=== PATIENT | male | born 1940 | race Asian ===

== ENCOUNTER 2018-07-12 15:33 | Inpatient (IN) | payer OTHER, BC ==
[~2018-07-12] VITALS: Ht 165.1 cm; Wt 89.8 kg
[2018-07-12] MEDS ORDERED: NACL 0.9% 1,000 ML IV ONE (15:45)
[2018-07-12] MEDS ORDERED: IPRATROPIUM/ALBUTEROL SULFATE 3 ML AMPUL.NEB (DUONEB) INH ONE (15:45)
[2018-07-12 15:55] VITALS: BP_SYST 158
[2018-07-12 17:06] LABS: ANION GAP 11 (5-15); CALCIUM 8.1 mg/dL (8.4-11.0); CHLORIDE 99 mmol/L (98-107); CREATININE 1.26 mg/dL (0.55-1.30); GLUCOSE 110 mg/dL (70-99); POTASSIUM 3.7 mmol/L (3.5-5.1); SODIUM SERUM 131 mmol/L (136-145); UREA NITROGEN, BLOOD 17 mg/dL (8-21)
[2018-07-12 17:11] LABS: ALANINE AMINOTRANSFERASE 23 U/L (12-78); ALBUMIN 3.1 g/dL (3.4-4.8); ASPARTATE AMINOTRANSFERASE 38 U/L (10-37); TOTAL BILIRUBIN 1.8 mg/dL (0.0-1.0)
[2018-07-12 17:25] LABS: BILIRUBIN,URINE 1+ (NEGATIVE); BLOOD, URINE 1+ (NEGATIVE); CLARITY/URINE CLEAR (CLEAR); COLOR,URINE YELLOW (YELLOW); GLUCOSE,URINE NEGATIVE (NEGATIVE); KETONES,URINE 2+ (NEGATIVE); LEUKOCYTE ESTERASE ,URINE 1+ (NEGATIVE); NITRITE, URINE NEGATIVE (NEGATIVE); PROTEIN URINE NEGATIVE (NEGATIVE)
[2018-07-12 17:27] LABS: ALCOHOL, BLOOD < 3 mg/dL (<10)
[2018-07-12 17:45] LABS: BACTERIA,URINE FEW /HPF (None Seen); MUCUS,URINE 1+ /LPF (None Seen)
[2018-07-12] MEDS ORDERED: VANCOMYCIN HCL 1,000 MG in NS 250 ML IV ONE (17:45)
[2018-07-12 17:46] LABS: BARBITURATE, URINE NEGATIVE (NEG <=200); BENZODIAZEPINE, URINE NEGATIVE (NEG <=150); CANNABINOID, URINE NEGATIVE (NEG <=50); COCAINE, URINE NEGATIVE (NEG <=150); METHAMPHETAMINES SCREEN,URINE NEGATIVE (NEG <=500); OPIATE, URINE NEGATIVE (NEG <=100); PHENCYCLIDINE SCREEN,URINE NEGATIVE (NEG <=25); UR TRICYCLIC ANTIDEPRESSANTS NEGATIVE (NEG <=300); URINE AMPHETAMINE NEGATIVE (NEG <=500); URINE METHADONE NEGATIVE (NEG <=200); URINE OXYCODONE SCREEN NEGATIVE (NEG <=100); URINE PROPOXYPHENE SCREEN NEGATIVE (NEG <=300)
[2018-07-12] MEDS ORDERED: VANCOMYCIN HCL 1000 MG/VIAL IV ONE (17:58)
[2018-07-12 18:04] LABS: HEMATOCRIT 39.5 % (36-54); MEAN CORPUSCULAR HEMOGLOBIN 33 pg (27-31); MEAN CORPUSCULAR HGB CONC 34 % (32-36); MEAN CORPUSCULAR VOLUME 97 fL (79.0-98.0); PLATELET COUNT (AUTO) 235 K/uL (130-430); RED BLOOD CELL COUNT(AUTO) 4.07 MIL/uL (4.2-6.2); RED CELL DISTRIBUTION WIDTH 14.7 % (9.0-15.0); WHITE BLOOD COUNT (AUTO) 12.2 K/uL (4.8-10.8)
[2018-07-12 18:05] LABS: BASOPHILS # (AUTO) 0.1 K/uL (0.0-0.2); BASOPHILS % (AUTO) 0.8 % (0.0-2.0); EOSINOPHILS # (AUTO) 0.2 K/uL (0.0-0.4); EOSINOPHILS % (AUTO) 1.9 % (0.0-4.0); LYMPHOCYTES # (AUTO) 1.5 K/uL (1.0-5.5); LYMPHOCYTES % (AUTO) 12.4 % (20.5-51.5); MONOCYTES % (AUTO) 16.6 % (1.7-9.3); NEUTROPHILS # (AUTO) 8.4 K/uL (1.8-7.7); NEUTROPHILS % (AUTO) 68.3 % (40.0-70.0)
[2018-07-12 18:08] LABS: HEMOGLOBIN 13.6 g/dL (14.0-18.0)
[2018-07-12 19:03] VITALS: BP_SYST 147
[2018-07-12 19:25] LABS: INR 1.2 (0.80-1.20); PROTHROMBIN TIME 11.8 SECS (9.5-12.5)
[2018-07-12] MEDS ORDERED: POTASSIUM CHLORIDE 20 MEQ TAB.PRT.SR PO PRN (19:30)
[2018-07-12] MEDS ORDERED: LORazepam 2 MG/ML VIAL IVP PRN (19:30)
[2018-07-12] MEDS ORDERED: MAGNESIUM SULFATE 50 ML IV PRN (19:30)
[2018-07-12] MEDS ORDERED: ACETAMINOPHEN 325 MG TABLET PO PRN (19:30)
[2018-07-12] MEDS ORDERED: MORPHINE 4 MG/ML INJ. SYRINGE IVP PRN ×2 (19:30)
[2018-07-12] MEDS ORDERED: DOCUSATE SODIUM 100 MG CAPSULE PO PRN (19:30)
[2018-07-12] MEDS ORDERED: METOPROLOL TARTRATE 25 MG TABLET PO ONE (19:30)
[2018-07-12] MEDS ORDERED: ZOLPIDEM TARTRATE 5 MG TABLET PO PRN (19:30)
[2018-07-12] MEDS ORDERED: MUPIROCIN 2% TOPICAL OINTMENT 22 GM NS PRN (19:30)
[2018-07-12] MEDS ORDERED: ONDANSETRON HCL 4 MG/2 ML VIAL IVP PRN (19:30)
[2018-07-12 20:00] VITALS: BP_SYST 147
[2018-07-12] MEDS ORDERED: ACETAMINOPHEN 500 MG TABLET PO PRN (20:45)
[2018-07-12] MEDS: HEPARIN SODIUM,PORCINE 5000 UNITS/ML VIAL SUBCUT SCH (20:53)
[2018-07-12] MEDS: cefTRIAXone 1 GM in D5W 50 ML IV SCH (20:56)
[2018-07-12] MEDS ORDERED: cefTRIAXone 1 GM IVPB PREMIX 50 ML IV ONE (21:02)
[2018-07-12] MEDS ORDERED: POTA20TA83 PO (21:39)
[2018-07-12] MEDS ORDERED: ALBU8.5H8 INH (21:39)
[2018-07-12] MEDS ORDERED: FLUT1DIS5 IH (21:39)
[2018-07-12] MEDS ORDERED: DILT120C89 PO (21:39)
[2018-07-12] MEDS ORDERED: XALEYE OP (21:39)
[2018-07-12] MEDS ORDERED: BRI.2% OP (21:39)
[2018-07-12] MEDS ORDERED: FINA5TAB3 PO (21:39)
[2018-07-12] MEDS ORDERED: PRO40 PO (21:39)
[2018-07-12] MEDS ORDERED: ALBU2.5V7 INH (21:39)
[2018-07-12] MEDS ORDERED: [UNRECOGNIZED DRUG - OTHER] OP (21:39)
[2018-07-12 21:45] VITALS: BP_SYST 142
[2018-07-12] MEDS: D5NS 1,000 ML IV SCH (21:55)
[2018-07-12] MEDS: IPRATROPIUM/ALBUTEROL SULFATE 3 ML AMPUL.NEB (DUONEB) INH PRN (22:30)
[2018-07-12 22:32] VITALS: BP_SYST 147
[2018-07-12 23:33] VITALS: BP_SYST 135
[2018-07-13 07:09] LABS: ANION GAP 7 (5-15); CALCIUM 7.4 mg/dL (8.4-11.0); CHLORIDE 101 mmol/L (98-107); CREATININE 0.92 mg/dL (0.55-1.30); GLUCOSE 111 mg/dL (70-99); POTASSIUM 3.5 mmol/L (3.5-5.1); SODIUM SERUM 130 mmol/L (136-145); UREA NITROGEN, BLOOD 16 mg/dL (8-21)
[2018-07-13] MEDS: IPRATROPIUM/ALBUTEROL SULFATE 3 ML AMPUL.NEB (DUONEB) INH PRN (07:19)
[2018-07-13 07:40] VITALS: BP_SYST 168
[2018-07-13] MEDS: HEPARIN SODIUM,PORCINE 5000 UNITS/ML VIAL SUBCUT SCH ×2 (08:47→21:15)
[2018-07-13] MEDS ORDERED: METOPROLOL TARTRATE 25 MG TABLET PO SCH (09:00)
[2018-07-13] MEDS: D5NS 1,000 ML IV SCH ×2 (09:00→19:29)
[2018-07-13] MEDS ORDERED: MAGNESIUM SULFATE 50 ML IV ONE (09:15)
[2018-07-13] MEDS ORDERED: FUROSEMIDE 40 MG/4 ML VIAL IVP ONE (09:15)
[2018-07-13 09:31] LABS: HEMATOCRIT 36.2 % (36-54); HEMOGLOBIN 12.6 g/dL (14.0-18.0); MEAN CORPUSCULAR HEMOGLOBIN 35 pg (27-31); MEAN CORPUSCULAR HGB CONC 35 % (32-36); MEAN CORPUSCULAR VOLUME 101 fL (79.0-98.0); NEUTROPHILS % (AUTO) 71.5 % (40.0-70.0); PLATELET COUNT (AUTO) 203 K/uL (130-430); RED BLOOD CELL COUNT(AUTO) 3.58 MIL/uL (4.2-6.2); RED CELL DISTRIBUTION WIDTH 14.9 % (9.0-15.0); WHITE BLOOD COUNT (AUTO) 11.9 K/uL (4.8-10.8)
[2018-07-13 09:32] LABS: BASOPHILS % (AUTO) 0.2 % (0.0-2.0); EOSINOPHILS # (AUTO) 0.2 K/uL (0.0-0.4); EOSINOPHILS % (AUTO) 1.4 % (0.0-4.0); LYMPHOCYTES # (AUTO) 1.1 K/uL (1.0-5.5); LYMPHOCYTES % (AUTO) 9.2 % (20.5-51.5); MONOCYTES # (AUTO) 2.1 K/uL (0.0-1.0); MONOCYTES % (AUTO) 17.7 % (1.7-9.3); NEUTROPHILS # (AUTO) 8.5 K/uL (1.8-7.7)
[2018-07-13] MEDS: IPRATROPIUM/ALBUTEROL SULFATE 3 ML AMPUL.NEB (DUONEB) INH SCH ×3 (11:39→20:05)
[2018-07-13 12:40] VITALS: BP_SYST 109
[2018-07-13] MEDS ORDERED: IOHEXOL 350 mgI/mL, 150 ML INFUS..BTL IV ONE (14:22)
[2018-07-13] MEDS: methylPREDNISolone SOD SUCC/PF 62.5 MG/ML VIAL IVP SCH ×2 (15:14→22:43)
[2018-07-13 16:02] VITALS: BP_SYST 138
[2018-07-13 16:05] VITALS: BP_SYST 142
[2018-07-13] MEDS: MONTELUKAST 10 MG TABLET PO SCH (18:05)
[2018-07-13 20:00] VITALS: BP_SYST 131
[2018-07-13] MEDS: cefTRIAXone 1 GM in D5W 50 ML IV SCH (20:59)
[2018-07-13] MEDS: METOPROLOL TARTRATE 50 MG TABLET PO SCH (21:12)
[2018-07-13 23:12] VITALS: BP_SYST 105
[2018-07-14] MEDS: methylPREDNISolone SOD SUCC/PF 62.5 MG/ML VIAL IVP SCH (06:29)
[2018-07-14 06:46] LABS: ANION GAP 8 (5-15); CALCIUM 7.4 mg/dL (8.4-11.0); CHLORIDE 105 mmol/L (98-107); CREATININE 1.19 mg/dL (0.55-1.30); GLUCOSE 199 mg/dL (70-99); POTASSIUM 3.7 mmol/L (3.5-5.1); SODIUM SERUM 136 mmol/L (136-145); UREA NITROGEN, BLOOD 31 mg/dL (8-21)
[2018-07-14] MEDS: IPRATROPIUM/ALBUTEROL SULFATE 3 ML AMPUL.NEB (DUONEB) INH SCH ×5 (07:16→23:35)
[2018-07-14 07:47] LABS: HEMOGLOBIN 12.4 g/dL (14.0-18.0); RED BLOOD CELL COUNT(AUTO) 3.52 MIL/uL (4.2-6.2); WHITE BLOOD COUNT (AUTO) 10.9 K/uL (4.8-10.8)
[2018-07-14 07:48] LABS: BASOPHILS % (AUTO) 0.1 % (0.0-2.0); HEMATOCRIT 34.7 % (36-54); LYMPHOCYTES % (AUTO) 5.1 % (20.5-51.5); MEAN CORPUSCULAR HEMOGLOBIN 35 pg (27-31); MEAN CORPUSCULAR HGB CONC 26 % (32-36); MEAN CORPUSCULAR VOLUME 99 fL (79.0-98.0); MONOCYTES % (AUTO) 6.2 % (1.7-9.3); NEUTROPHILS % (AUTO) 88.6 % (40.0-70.0); PLATELET COUNT (AUTO) 192 K/uL (130-430); RED CELL DISTRIBUTION WIDTH 14.5 % (9.0-15.0)
[2018-07-14 07:49] LABS: LYMPHOCYTES # (AUTO) 0.6 K/uL (1.0-5.5); MONOCYTES # (AUTO) 0.7 K/uL (0.0-1.0); NEUTROPHILS # (AUTO) 9.7 K/uL (1.8-7.7)
[2018-07-14 08:02] VITALS: BP_SYST 121
[2018-07-14] MEDS: METOPROLOL TARTRATE 50 MG TABLET PO SCH ×2 (08:43→20:48)
[2018-07-14] MEDS: HEPARIN SODIUM,PORCINE 5000 UNITS/ML VIAL SUBCUT SCH ×2 (08:45→20:52)
[2018-07-14] MEDS: D5NS 1,000 ML IV SCH (12:08)
[2018-07-14 12:10] VITALS: BP_SYST 101
[2018-07-14] MEDS: methylPREDNISolone SOD SUCC 40 MG/ML VIAL IVP SCH ×2 (15:12→23:01)
[2018-07-14 16:15] VITALS: BP_SYST 116
[2018-07-14] MEDS: MONTELUKAST 10 MG TABLET PO SCH (18:18)
[2018-07-14 20:00] VITALS: BP_SYST 116
[2018-07-14] MEDS: cefTRIAXone 1 GM in D5W 50 ML IV SCH (20:48)
[2018-07-15 02:14] VITALS: BP_SYST 107
[2018-07-15] MEDS: D5NS 1,000 ML IV SCH ×2 (02:24→17:53)
[2018-07-15] MEDS ORDERED: FUROSEMIDE 40 MG/4 ML VIAL IVP ONE (05:30)
[2018-07-15] MEDS: methylPREDNISolone SOD SUCC 40 MG/ML VIAL IVP SCH (06:00)
[2018-07-15] MEDS ORDERED: FUROSEMIDE 40 MG TABLET PO ONE (07:00)
[2018-07-15] MEDS: IPRATROPIUM/ALBUTEROL SULFATE 3 ML AMPUL.NEB (DUONEB) INH SCH ×5 (07:15→22:00)
[2018-07-15 07:50] VITALS: BP_SYST 103
[2018-07-15 08:10] LABS: PROTHROMBIN TIME 9.8 SECS (9.5-12.5)
[2018-07-15 08:18] LABS: ANION GAP 8 (5-15); CHLORIDE 106 mmol/L (98-107); CREATININE 1.44 mg/dL (0.55-1.30); GLUCOSE 196 mg/dL (70-99); POTASSIUM 3.5 mmol/L (3.5-5.1); SODIUM SERUM 137 mmol/L (136-145); UREA NITROGEN, BLOOD 53 mg/dL (8-21)
[2018-07-15] MEDS: METOPROLOL TARTRATE 50 MG TABLET PO SCH ×2 (09:14→21:00)
[2018-07-15] MEDS: HEPARIN SODIUM,PORCINE 5000 UNITS/ML VIAL SUBCUT SCH ×2 (09:16→21:01)
[2018-07-15 11:35] VITALS: BP_SYST 137
[2018-07-15 14:15] VITALS: BP_SYST 137
[2018-07-15 14:21] LABS: HEMATOCRIT 39.7 % (36-54); HEMOGLOBIN 12.7 g/dL (14.0-18.0); MEAN CORPUSCULAR HEMOGLOBIN 31 pg (27-31); MEAN CORPUSCULAR HGB CONC 32 % (32-36); PLATELET COUNT (AUTO) 254 K/uL (130-430); RED BLOOD CELL COUNT(AUTO) 4.13 MIL/uL (4.2-6.2); RED CELL DISTRIBUTION WIDTH 14.7 % (9.0-15.0); WHITE BLOOD COUNT (AUTO) 15.2 K/uL (4.8-10.8)
[2018-07-15 14:22] LABS: MEAN CORPUSCULAR VOLUME 96 fL (79.0-98.0)
[2018-07-15 14:38] LABS: ATYPICAL LYMPHOCYTES % 0 % (0-0); BAND % (MANUAL) 2 % (0-6); BASOPHILS % (MANUAL) 0 % (0-2); EOSINOPHILS % (MANUAL) 0 % (0-7); LYMPHOCYTES % (MANUAL) 2 % (20-46); MONOCYTES % (MANUAL) 4 % (0-11)
[2018-07-15 15:40] VITALS: BP_SYST 138
[2018-07-15] MEDS: MONTELUKAST 10 MG TABLET PO SCH (17:50)
[2018-07-15 20:33] VITALS: BP_SYST 137
[2018-07-15] MEDS: PREDNISONE 20 MG TABLET PO SCH (20:59)
[2018-07-15] MEDS: cefTRIAXone 1 GM in D5W 50 ML IV SCH (20:59)
[2018-07-16 01:50] VITALS: BP_SYST 124
[2018-07-16] MEDS: D5NS 1,000 ML IV SCH ×3 (03:30→22:07)
[2018-07-16 07:35] VITALS: BP_SYST 149
[2018-07-16] MEDS: IPRATROPIUM/ALBUTEROL SULFATE 3 ML AMPUL.NEB (DUONEB) INH SCH ×5 (07:40→22:00)
[2018-07-16] MEDS: PREDNISONE 20 MG TABLET PO SCH ×2 (09:30→21:37)
[2018-07-16] MEDS: METOPROLOL TARTRATE 50 MG TABLET PO SCH ×2 (09:30→21:39)
[2018-07-16] MEDS ORDERED: PIPERACILLIN/TAZO 3.375/DEX-IS 50 ML IV ONE (09:30)
[2018-07-16] MEDS: HEPARIN SODIUM,PORCINE 5000 UNITS/ML VIAL SUBCUT SCH ×2 (09:31→21:40)
[2018-07-16 10:12] LABS: ANION GAP 7 (5-15); CALCIUM 7.6 mg/dL (8.4-11.0); CHLORIDE 106 mmol/L (98-107); CREATININE 1.03 mg/dL (0.55-1.30); GLUCOSE 139 mg/dL (70-99); POTASSIUM 4.1 mmol/L (3.5-5.1); SODIUM SERUM 137 mmol/L (136-145); UREA NITROGEN, BLOOD 56 mg/dL (8-21)
[2018-07-16 12:12] VITALS: BP_SYST 132
[2018-07-16 12:15] LABS: WHITE BLOOD COUNT (AUTO) 14.3 K/uL (4.8-10.8)
[2018-07-16 12:16] LABS: HEMATOCRIT 34.5 % (36-54); MEAN CORPUSCULAR HEMOGLOBIN 32 pg (27-31); MEAN CORPUSCULAR HGB CONC 33 % (32-36); MEAN CORPUSCULAR VOLUME 97 fL (79.0-98.0); PLATELET COUNT (AUTO) 90 K/uL (130-430); RED BLOOD CELL COUNT(AUTO) 3.56 MIL/uL (4.2-6.2); RED CELL DISTRIBUTION WIDTH 15.2 % (9.0-15.0)
[2018-07-16 12:17] LABS: HEMOGLOBIN 11.3 g/dL (14.0-18.0)
[2018-07-16 13:12] LABS: ATYPICAL LYMPHOCYTES % 0 % (0-0); BAND % (MANUAL) 2 % (0-6); BASOPHILS % (MANUAL) 0 % (0-2); EOSINOPHILS % (MANUAL) 0 % (0-7); LYMPHOCYTES % (MANUAL) 7 % (20-46); MONOCYTES % (MANUAL) 7 % (0-11)
[2018-07-16] MEDS: PIPERACILLIN/TAZO 3.375/DEX-IS 50 ML IV SCH ×2 (16:32→21:41)
[2018-07-16 17:11] VITALS: BP_SYST 116
[2018-07-16] MEDS: MONTELUKAST 10 MG TABLET PO SCH (18:26)
[2018-07-16 20:00] VITALS: BP_SYST 128
[2018-07-16 23:25] VITALS: BP_SYST 144
[2018-07-17] MEDS: D5NS 1,000 ML IV SCH ×3 (04:25→23:58)
[2018-07-17] MEDS: PIPERACILLIN/TAZO 3.375/DEX-IS 50 ML IV SCH (05:02)
[2018-07-17 07:15] LABS: ANION GAP 7 (5-15); CALCIUM 7.4 mg/dL (8.4-11.0); CHLORIDE 108 mmol/L (98-107); CREATININE 1.05 mg/dL (0.55-1.30); GLUCOSE 182 mg/dL (70-99); POTASSIUM 4.2 mmol/L (3.5-5.1); SODIUM SERUM 140 mmol/L (136-145); UREA NITROGEN, BLOOD 34 mg/dL (8-21)
[2018-07-17] MEDS: IPRATROPIUM/ALBUTEROL SULFATE 3 ML AMPUL.NEB (DUONEB) INH SCH ×5 (07:24→22:00)
[2018-07-17 08:00] VITALS: BP_SYST 117
[2018-07-17] MEDS: PREDNISONE 20 MG TABLET PO SCH ×2 (09:19→21:45)
[2018-07-17] MEDS: METOPROLOL TARTRATE 50 MG TABLET PO SCH ×2 (09:20→21:47)
[2018-07-17] MEDS: HEPARIN SODIUM,PORCINE 5000 UNITS/ML VIAL SUBCUT SCH ×2 (09:22→21:47)
[2018-07-17] MEDS ORDERED: GENTAMICIN 100 mg/50 mL NS 50 ML IV ONE (11:30)
[2018-07-17 12:15] VITALS: BP_SYST 128
[2018-07-17 12:27] LABS: HEMOGLOBIN 11.5 g/dL (14.0-18.0); MEAN CORPUSCULAR HEMOGLOBIN 35 pg (27-31); MEAN CORPUSCULAR VOLUME 93 fL (79.0-98.0); PLATELET COUNT (AUTO) 205 K/uL (130-430); RED BLOOD CELL COUNT(AUTO) 3.33 MIL/uL (4.2-6.2)
[2018-07-17 12:29] LABS: MEAN CORPUSCULAR HGB CONC 37 % (32-36)
[2018-07-17 12:40] LABS: BAND % (MANUAL) 0 % (0-6); LYMPHOCYTES % (MANUAL) 3 % (20-46)
[2018-07-17 12:41] LABS: BASOPHILS % (MANUAL) 0 % (0-2); EOSINOPHILS % (MANUAL) 0 % (0-7); MONOCYTES % (MANUAL) 5 % (0-11)
[2018-07-17 16:39] VITALS: BP_SYST 146
[2018-07-17] MEDS: MONTELUKAST 10 MG TABLET PO SCH ×2 (18:28→18:29)
[2018-07-17 20:25] VITALS: BP_SYST 129
[2018-07-17] MEDS ORDERED: VANCOMYCIN HCL 1 GM/NS PREMIX 250 ML IV ONE (22:45)
[2018-07-17] MEDS ORDERED: VANCOMYCIN HCL 1000 MG/VIAL IV ONE (23:24)
[2018-07-18 02:33] VITALS: BP_SYST 144
[2018-07-18] MEDS: IPRATROPIUM/ALBUTEROL SULFATE 3 ML AMPUL.NEB (DUONEB) INH SCH ×5 (07:20→22:00)
[2018-07-18 08:00] VITALS: BP_SYST 127
[2018-07-18] MEDS: METOPROLOL TARTRATE 50 MG TABLET PO SCH ×2 (09:21→22:28)
[2018-07-18] MEDS: PREDNISONE 20 MG TABLET PO SCH ×2 (09:21→22:28)
[2018-07-18] MEDS: HEPARIN SODIUM,PORCINE 5000 UNITS/ML VIAL SUBCUT SCH ×2 (09:23→22:29)
[2018-07-18 12:02] VITALS: BP_SYST 136
[2018-07-18] MEDS ORDERED: FUROSEMIDE 40 MG/4 ML VIAL IVP ONE (12:15)
[2018-07-18] MEDS: 0.45% NACL 1,000 ML IV SCH (12:45)
[2018-07-18 16:08] VITALS: BP_SYST 148
[2018-07-18] MEDS: MONTELUKAST 10 MG TABLET PO SCH (18:09)
[2018-07-18 21:00] VITALS: BP_SYST 145
[2018-07-19 00:24] VITALS: BP_SYST 145
[2018-07-19 07:17] LABS: HEMOGLOBIN 11.2 g/dL (14.0-18.0); RED BLOOD CELL COUNT(AUTO) 3.27 MIL/uL (4.2-6.2)
[2018-07-19 07:18] LABS: HEMATOCRIT 31.7 % (36-54); MEAN CORPUSCULAR HEMOGLOBIN 34 pg (27-31); MEAN CORPUSCULAR HGB CONC 35 % (32-36); MEAN CORPUSCULAR VOLUME 97 fL (79.0-98.0); PLATELET COUNT (AUTO) 293 K/uL (130-430); RED CELL DISTRIBUTION WIDTH 14.9 % (9.0-15.0)
[2018-07-19 07:49] VITALS: BP_SYST 150
[2018-07-19 07:55] LABS: ANION GAP 7 (5-15); CALCIUM 7.9 mg/dL (8.4-11.0); CHLORIDE 101 mmol/L (98-107); GLUCOSE 143 mg/dL (70-99); POTASSIUM 4.5 mmol/L (3.5-5.1); SODIUM SERUM 135 mmol/L (136-145); UREA NITROGEN, BLOOD 26 mg/dL (8-21)
[2018-07-19] MEDS: IPRATROPIUM/ALBUTEROL SULFATE 3 ML AMPUL.NEB (DUONEB) INH SCH ×2 (08:05→11:10)
[2018-07-19 08:07] LABS: ALANINE AMINOTRANSFERASE 43 U/L (12-78); ALBUMIN 2.3 g/dL (3.4-4.8); ASPARTATE AMINOTRANSFERASE 20 U/L (10-37); TOTAL BILIRUBIN 0.3 mg/dL (0.0-1.0)
[2018-07-19] MEDS: PREDNISONE 20 MG TABLET PO SCH (08:14)
[2018-07-19] MEDS: METOPROLOL TARTRATE 50 MG TABLET PO SCH (08:15)
[2018-07-19] MEDS: 0.45% NACL 1,000 ML IV SCH (08:15)
[2018-07-19] MEDS: HEPARIN SODIUM,PORCINE 5000 UNITS/ML VIAL SUBCUT SCH (08:16)
[2018-07-19 09:08] LABS: BASOPHILS % (AUTO) 0.1 % (0.0-2.0); EOSINOPHILS % (AUTO) 0.1 % (0.0-4.0); LYMPHOCYTES % (AUTO) 5.2 % (20.5-51.5); MONOCYTES % (AUTO) 8.6 % (1.7-9.3)
[2018-07-19 09:09] LABS: LYMPHOCYTES # (AUTO) 0.5 K/uL (1.0-5.5); MONOCYTES # (AUTO) 0.9 K/uL (0.0-1.0); NEUTROPHILS # (AUTO) 8.6 K/uL (1.8-7.7)
[2018-07-19 12:00] VITALS: BP_SYST 157
[2018-07-19 13:12] VITALS: BP_SYST 157
== END 2018-07-19 14:30 | DRG 871 ==
LOC: SED 15:33 → SMU 18:22 → STU 07-13 15:58 → SMU 07-16 09:16
PROVIDERS: ADMIT General Practice; ATTEND General Practice
DX: A41.50 Gram-negative sepsis, unspecified (principal); G93.41 Metabolic encephalopathy; E44.1 Mild protein-calorie malnutrition; E87.1 Hypo-osmolality and hyponatremia; J45.901 Unspecified asthma with (acute) exacerbation; N10 Acute pyelonephritis; D69.6 Thrombocytopenia, unspecified; E66.9 Obesity, unspecified; I11.9 Hypertensive heart disease without heart failure; K21.9 Gastro-esophageal reflux disease without esophagitis; M62.08 Separation of muscle (nontraumatic), other site; K43.9 Ventral hernia without obstruction or gangrene; N40.0 Benign prostatic hyperplasia without lower urinary tract symptoms; T38.0X5A Adverse effect of glucocorticoids and synthetic analogues, initial encounter; Y92.89 Other specified places as the place of occurrence of the external cause; Z68.32 Body mass index [BMI] 32.0-32.9, adult; Z99.81 Dependence on supplemental oxygen
CPT/HCPCS: 36415; 70450-TC; 71045; 71275; 76770; 80048; 80053; 80307; 81000-TC; 82803-TC; 83036; 83605; 83735-TC; 84484; 85007; 85025; 85027; 85610-TC; 85730-TC; 87040-TC; 87086; 92610-GN; 93005; 93970; 94640; 94664; 94760; 96365; 96366; 97116-GP; 97530-GP; 99285; G0378; G0482; J0696; J1030; J1580; J1644; J1940; J2270; J2543; J2930; J3370; J3475; J7042; J7050; J7060; J7512; J7620; Q9967